=== PATIENT | female | born 1980 | race African-American/Black ===

== ENCOUNTER 2021-11-04 14:40 | Emergency (ER) | payer OTHER ==
[~2021-11-04] VITALS: Ht 162.6 cm; Wt 102.5 kg
[~2021-11-04 14:40] MED LIST: AVALIDE 300-121 EACH; DEPAKOTE ER250 MG PO; TARKA 1/2401 BOTTLE PO
[2021-11-04] MEDS ORDERED: IRBESARTAN-HCT1 EACH PO (14:59)
[2021-11-04] MEDS ORDERED: PROTONIX40 M1 PO (15:00)
[2021-11-04] MEDS ORDERED: PEPCID AC20 MG PO (15:00)
== END 2021-11-04 21:33 | disposition home or self-care (01) ==
LOC: ER 14:40
DX: K64.9 Unspecified hemorrhoids (principal); Z91.012 Allergy to eggs; Z91.018 Allergy to other foods

== ENCOUNTER 2022-01-16 07:52 | Outpatient (CLI) | payer OTHER ==
[~2022-01-16 07:52] MED LIST changes: +IRBESARTAN-HCT1 EACH PO; +PEPCID AC20 MG PO; +PROTONIX40 M1 PO
== END 2022-01-16 08:02 | disposition home or self-care (01) ==
LOC: RX STUDY 07:52
PROVIDERS: ATTEND Internal Medicine Gastroenterology
DX: R13.10 Dysphagia, unspecified (principal)